=== PATIENT | female | born 1990 | race Caucasian/White ===

== ENCOUNTER 2021-08-08 22:40 | Emergency (ER) | payer OTHER ==
[2021-08-09 00:34] LABS: HEMOGLOBIN 13.6 gm/dl (12.3-15.3); RED BLOOD COUNT 4.71 M/UL (4.00-5.10); WHITE BLOOD COUNT 12.3 K/UL (4.5-11.0)
[2021-08-09 01:08] LABS: BUN/CREATININE RATIO 11 (0-10)
== END 2021-08-09 02:00 | disposition home or self-care (01) ==
LOC: ER1 22:40
PROVIDERS: Physician Assistant Medical
DX: R07.89 Other chest pain (principal); M54.6 Pain in thoracic spine
CPT/HCPCS: 71045; 80053; 82550; 82553; 84439; 84443; 84484; 85025; 85379; 93005; 96372; 99285; J1885